=== PATIENT | female | born 1950 | race Hispanic/Latino ===

== ENCOUNTER 2025-02-16 06:10 | Inpatient (IN) | payer OTHER, MEDICARE ==
[2025-02-11 09:25] VITALS: BP 122/69; PULSE 78; RESP 16; TEMP 97.5
[2025-02-11 09:37] LABS: BASOPHILS # (AUTO) 0.02 K/uL (0.00-0.20); BASOPHILS % (AUTO) 0.4 % (0.0-5.0); EOSINOPHILS # (AUTO) 0.08 K/uL (0.00-0.70); EOSINOPHILS % (AUTO) 1.4 % (0.0-8.0); HEMATOCRIT 40.8 % (36-48); IMMATURE GRANULOCYTE ABSOLUTE 0.03 K/uL (0-1); LYMPHOCYTES # (AUTO) 1.9 K/uL (1.0-4.8); LYMPHOCYTES % (AUTO) 33.8 % (21.0-51.0); MEAN CORPUSCULAR HEMOGLOBIN 30.7 pg (27.0-33.0); MEAN CORPUSCULAR HGB CONC 32.8 g/dL (32.0-36.0); MEAN CORPUSCULAR VOLUME 93.4 fL (79-99); MONOCYTES # (AUTO) 0.6 K/uL (0.1-1.0); MONOCYTES % (AUTO) 11.3 % (3.0-13.0); NEUTROPHILS % (AUTO) 52.6 % (40.0-77.0); PLATELET COUNT (AUTO) 233 K/uL (130-400); RED BLOOD CELL COUNT(AUTO) 4.37 MIL/uL (4.00-5.50); WHITE BLOOD COUNT (AUTO) 5.6 K/uL (4.8-10.8)
[2025-02-11 09:44] LABS: POTASSIUM 4.3 mmol/L (3.5-5.1)
[2025-02-11 09:48] LABS: INR 0.96 (0.85-1.15); PROTHROMBIN TIME 10.2 SEC (9.6-11.6)
[2025-02-11 09:49] LABS: PARTIAL THROMBOPLASTIN TIME 22.5 SEC (26.3-35.5)
--- NOTE | 2025-02-14 12:09 | NUR ---
NOTIFIED CALLED GUDELIA/DR BRANCH TO VERIFY NEPHROLOGY CLEARANCE. PER GUDELIA THAT IS THE CLEARANCE FOR HH REPAIR WITH IDALIA FUNDOPLICATION
[2025-02-16] VITALS (30 sets, daily range): BP systolic 101–171; BP diastolic 58–101; PULSE 77–140; RESP 12–20; TEMP 96.7–98.4; O2SAT 98
[~2025-02-16] VITALS: Ht 165.1 cm; Wt 83.4 kg
[~2025-02-16 06:10] MED LIST: BISA-151 PO; CYAN30003 SL; LISI10TA24 PO; MECL-244 PO; MONT-39 PO; OMEP40CA21 PO; SIMV10TA97 PO; SUCR1TAB2 PO; TRAZ-185 PO
[2025-02-16] MEDS ORDERED: BUPIvacaine/PF 0.25% 30ML VIAL IJ ONE (07:29)
[2025-02-16] MEDS ORDERED: rocuRONium bROMide 10MG/1ML 5ML VL ONE ×2 (07:36→09:35)
[2025-02-16] MEDS ORDERED: ondanSETRON 4MG INJ ONE (07:36)
[2025-02-16] MEDS ORDERED: proPOFol 10 MG/ML 20ML VIAL IV ONE (07:36)
[2025-02-16] MEDS ORDERED: FENTanyl CITRate PF 50 MCG/1 ML 5ML AMP IV ONE (07:36)
[2025-02-16] MEDS ORDERED: MIDAZOLAM HCL 1 MG/ML 2ML VIAL ONE (07:36)
[2025-02-16] MEDS: LACTATED RINGERS 1000ML 1,000 ML IV ONE (07:40)
[2025-02-16] MEDS: ceFAZolin SODIUM 2 GM VIAL ONE (07:40)
[2025-02-16] MEDS: FAMOTIDINE 20MG VIAL IV ONE (07:58)
[2025-02-16] MEDS: ceFAZolin SODIUM 2 GM VIAL IVPB ONE (08:15)
[2025-02-16] MEDS ORDERED: phenylEPHRINE HCL 10 MG/ML 1ML VIAL IV ONE (08:50)
[2025-02-16] MEDS: SUGAMMADEX SODIUM 200 MG/2 ML VIAL IV ONE (10:35)
[2025-02-16] MEDS: acetaMINOPHEN 100 ML ONE (10:36)
--- NOTE | 2025-02-16 10:48 | OP ---
Operative Note: DATE OF PROCEDURE: 02/16/25 SURGEON: ZULMA BRANCH MD DIFFERENTIAL REPAIRER: [Please review operative record] ANESTHESIA: [General and local] ANESTHESIOLOGIST/QUALITY CONTROL SYSTEMS MANAGER: [Please review operative record] PREOPERATIVE DIAGNOSIS: [Diaphragmatic hernia, severe gastroesophageal reflux disease] POSTOPERATIVE DIAGNOSIS: [Same] SYNOPSIS: [5 cm hiatal hernia containing incarcerated cardia and fundus, successfully reduced, primarily repair, reinforced with the mesh. Partial fundo plication performed. Esophageal laceration on endoscopy post repair, addressed via esophageal stent] PROCEDURE: [1. Robotic assisted laparoscopic hiatal hernia repair with mesh reinforcement. 2. Partial anterior fundoplication. 3. Intraoperative EGD. 4. Esophageal covered stent placement under fluoroscopy] ESTIMATED BLOOD LOSS: [20 ccs] INDICATIONS: [Patient is a 74-year-old female with chronic heartburn, found to found a large hiatal hernia and EGD and imaging. Patient has failed conservative management with dietary changes and medication. Recommendation was given for surgical intervention the hiatal hernia repair, fundoplication. Risks, benefits, alternatives were discussed with the patient. Patient had all her questions answered. Patient agreed to proceed with surgical procedure] DESCRIPTION OF PROCEDURE: [After appropriate consent was obtained, the patient was transferred to the operating room placed in supine position on the operating table. SCDs were placed, preop antibiotics were given. Patient underwent induction of general anesthesia, endotracheal intubation. Patient was then prepped and draped in the usual sterile fashion. Time-out was performed. Through a left subcostal was incision, Veress needle was inserted into the peritoneal cavity in order to achieve pneumoperitoneum 12 mmHg. Using [employer], laparoscope and trocar were placed in the supraumbilical region through a 8 mm incision. Veress needle and this vicinity were examined with no signs of injury. Rest of my trocars were all placed under direct visualization. Patient was positioned on the reverse Trendelenburg position at 20. Through a 5 mm incision in the epigastrium, Juany liver retractor was placed in order to retract the left lobe of the liver anteriorly. The Clarissa robot was docked at this time. Upon evaluation of the diaphragmatic hiatus, there was a 5 cm hiatal hernia containing incarcerated cardia and fundus of the stomach. Our dissection began by incising the hepatogastric ligament in a avascular. This was followed cephalad towards the diaphragm using vessel sealer. Hiatal orifice was dissected circumferentially using vessel sealer. Right crura was identified and a plane was developed between the right herminia in the right wall of the esophagus. The dissection was accomplished with a combination of both vessel sealer and blunt dissection. On the posterior aspect of the esophageal wall, the left herminia was identified and this dissection was followed towards the left herminia. A few short gastrics were divided in order to fully mobilize the fundus of the stomach. Once the esophagus was fully mobilized, we focused on the intra mediastinal dissection. Again this was accomplished mostly with blunt dissection, very little vessel sealer dissection. Once there was 3 cm of intra-abdominal esophagus, we passed the endoscope through the mouth into the esophagus and into the stomach. There was no resistance to the scope at this time. With the endoscope in place, we then proceeded to perform our cruroplasty. This was achieved by approximating the left and the right crura on the posterior aspect of the esophagus using two 0 V lock nonabsorbable suture in a running fashion. At the end of our cruroplasty, only one instrument was able to pass through the diaphragmatic hiatus. An 8 cm Phasix round mesh with a horseshoe configuration was then used to reinforce the repair. This mesh was sutured in place using 3-0 V lock absorbable suture in a running fashion in a couple of simple interrupted 2-0 silk. At this time we focused on creating a partial anterior fundoplication (Derrell). Of note, the endoscope remained in the stomach during this whole time. The fundus was grasped and passed from left to right anteriorly to the esophagus and sutured in place to the right herminia and diaphragm using 2-0 silk suture in a running fashion. Endoscopy with insufflation revealed no air leak, no stenosis through the GE junction, appropriate reduction of the hiatal hernia in an intact wrap. However there was a area of concern on the distal esophagus for a laceration, no evidence of through and through perforation. Upon discussion with GI and 2nd opinion by surgeon Troy Harris, we decided to place a covered stent in order to prevent complications. Using endoscopy and fluoroscopy, guidewire was inserted into the stomach. A fully covered esophageal stent measuring 23 mm x 150 mm was deployed into the stomach through the GE junction and occluding the area where the laceration was present. Final inspection with endoscopy revealed adequate positioning which was also confirmed with fluoroscopy. Final inspection revealed adequate hemostasis, no concerns for leakage. At this time all instruments were removed, abdomen was deflated. Count at the end of the case was correct. Skin incisions were closed with 4-0 Monocryl. Dermabond was applied over the incisions. Patient tolerated the procedure well. Transferred to recovery in good condition.] ZULMA BRANCH MD Feb 16, 2025 10:48
[2025-02-16] MEDS ORDERED: PROCHLORPERAZINE 10MG/2ML INJ IV PRN (11:00)
[2025-02-16] MEDS ORDERED: ondanSETRON 4MG INJ IVP PRN (11:00)
[2025-02-16] MEDS ORDERED: hydrALAZine 20MG/ML VIAL IV PRN (11:00)
[2025-02-16] MEDS ORDERED: hydroMORPHone 0.5 MG SYG (0.5MG/0.5ML) IVP PRN (11:00)
[2025-02-16] MEDS ORDERED: trAZOdone HCL 50 MG TAB PO PRN (11:00)
[2025-02-16] MEDS: FENTanyl CITRate PF 50 MCG/1 ML 2ML VIAL ONE (11:09)
[2025-02-16] MEDS: metoCLOPRAmide 10 MG/2 ML VIAL ONE (11:23)
[2025-02-16] MEDS: morPHINE 2 MG SYG ONE (11:34)
--- NOTE | 2025-02-16 15:03 | HMCIMG ---
IMAGE GUIDANCE FOR EGD REASON: EGD FOR COVERED STENT PLCMNT. COMPARISON: None TECHNIQUE: Fluoroscopic images were obtained by referring physician. FINDINGS: Please see procedure report by referring physician. IMPRESSION: Intraoperative films.
[2025-02-16] MEDS: HYDROcod/acetaMINOPHEN 7.5/325 MG 15 ML UDCUP PO PRN (17:13)
[2025-02-16] MEDS: LACTATED RINGERS 1000ML 1,000 ML IV SCH (17:21)
[2025-02-16] MEDS: SUCRALFATE 1 GM/10 ML PO SCH (17:21)
[2025-02-16] MEDS: FAMOTIDINE 20MG VIAL IV SCH (20:38)
[2025-02-16] MEDS: ENOXAPARIN SODIUM 30 MG/0.3 ML SQ SCH (20:38)
[2025-02-16] MEDS: ketOROlac 30MG VIAL (30MG/ML) IV PRN (22:53)
[2025-02-17] VITALS: BP 150/88; PULSE 100; RESP 18; TEMP 98.6
[2025-02-17 04:00] VITALS: BP 149/88; PULSE 98; RESP 17; TEMP 98.7
[2025-02-17] MEDS: LISINOPRIL 10 MG TABLET PO SCH (07:33)
[2025-02-17 07:54] VITALS: BP 146/75; PULSE 88; RESP 18; TEMP 97.8
[2025-02-17 08:00] VITALS: O2SAT 94
[2025-02-17] MEDS ORDERED: DIATR MEGLU/DIATRIZOATE SODIUM 30 ML BOTTLE ONE (08:51)
--- NOTE | 2025-02-17 09:19 | HMCIMG ---
UPPER GI TRACT, WO KUB REASON: sp hiatal hernia repair / esophageal stent placement for distal esophageal lac. COMPARISON: None TECHNIQUE: Gastrografin upper GI series was performed. FINDINGS: There is no obstruction to the antegrade passage of contrast from mouth through jejunum. Esophageal stent is seen. No evidence of gastroesophageal reflux is seen. Stomach is moderately distended. No evidence of hiatal hernia is seen. Duodenal bulb and duodenal sweep are grossly unremarkable. No leakage is seen. IMPRESSION: No obstruction or leakage is seen.
--- NOTE | 2025-02-17 10:20 | NUR ---
DCP: HOME Pt lives at home with Poncho Rondon [phone]. Pt reports that she requires assistance with her bathing dressing grooming, home management and meal prep. Pt has provider 10-2 daily thru [facility]. Pt's transports as needed. Pt denies need for DME or HH at this time. PCP is Tabby Stephenson and she uses [facility] in [place] for her rx needs. Discussed dc needs. Pt states she will return home at dc Addendum: 02/17/25 at 1037 by JOSE FERRARI Amended: Links added.
[2025-02-17 11:11] VITALS: BP 154/87; PULSE 94; RESP 17; TEMP 98
--- NOTE | 2025-02-17 11:13 | DS ---
Discharge Summary HOSPITAL COURSE SUMMARY: [] MANUAL WINDER(S): [] PROCEDURES: [] PROBLEM(S): [] DISCHARGE INSTRUCTIONS: [] Home Meds Reported Medications Meclizine HCl (Motion Sickness) 25 Mg Tablet, 25 MG PO AD PRN for DIZZINESS, TAB 02/11/25 Bisacodyl (Bisacodyl) 5 Mg Tablet.dr, 10 MG PO DAILY, TAB 02/11/25 Cyanocobalamin (Vitamin B-12) (Vitamin B-12) 3,000 Mcg Tab.subl, 1 TAB SL DAILY for 30 Days, #30 TAB 0 Refills 02/11/25 Omeprazole (Omeprazole) 40 Mg Capsule.dr, 1 CAP PO DAILY for 30 Days, #30 CAP 0 Refills 02/11/25 Sucralfate (Sucralfate) 1 Gram Tablet, 1 TAB PO QID for 30 Days, #120 TAB 0 Refills 02/11/25 Trazodone HCl (Trazodone HCl) 50 Mg Tablet, 1 TAB PO HS PRN for SLEEP for 30 Days, #30 TAB 0 Refills 02/11/25 Montelukast Sodium (Montelukast Sodium) 10 Mg Tablet, 1 TAB PO DAILY for 30 Days, #30 TAB 0 Refills 02/11/25 Simvastatin (Simvastatin) 10 Mg Tablet, 1 TAB PO HS for 30 Days, #30 TAB 0 Refills 02/11/25 Lisinopril (Lisinopril) 10 Mg Tablet, 1 TAB PO DAILY for 30 Days, #30 TAB 0 Refills 02/11/25 AGA DUMONT T[employer]FGR[employer] TECHNICIAN Feb 17, 2025 11:13
--- NOTE | 2025-02-17 13:20 | NUR ---
discharge Patient instructed on discharge instructions and MD recommendations. Patient verbalized understanding. Per Geeta [facility] will call to schedule follow up with GI specialist.
[2025-02-17] MEDS ORDERED: ketOROlac 15MG/ML VIAL (15MG/ML) IV PRN (14:00)
== END 2025-02-17 13:21 | disposition home or self-care (01) | DRG 328 ==
LOC: DAH 06:10 → DAHIP 06:11 → 4AH 12:15
PROVIDERS: ADMIT Surgery; ATTEND Surgery
PROC: 8E0W4CZ Robotic Assisted Procedure of Trunk Region, Percutaneous Endoscopic Approach (ICD-10-PCS; 2025-02-16)
PROC: 0BUT4JZ Supplement Diaphragm with Synthetic Substitute, Percutaneous Endoscopic Approach (ICD-10-PCS; principal; 2025-02-16 08:00)
PROC: 0DV44ZZ Restriction of Esophagogastric Junction, Percutaneous Endoscopic Approach (ICD-10-PCS; 2025-02-16 08:00)
PROC: 0D748DZ Dilation of Esophagogastric Junction with Intraluminal Device, Via Natural or Artificial Opening Endoscopic (ICD-10-PCS; 2025-02-16 08:00)
DX: K44.9 Diaphragmatic hernia without obstruction or gangrene (principal); K22.89 Other specified disease of esophagus; K21.9 Gastro-esophageal reflux disease without esophagitis; Z79.899 Other long term (current) drug therapy
CPT/HCPCS: 36415; 43266; 74240; 74360; 80048; 85025; 85610; 85730; 86850; 86900; 86901; G0378; J1650; J1885; J2250; J2270; J2371; J2405; J2704; J2765; J3010; J3490; J7030; J7120; Q9963; A4215; A4216; A4221; A4222; A4223; A4600; A4663; A4930; A6260; C1781; C1874; J0665; J0690